=== PATIENT | female | born 1945 | race Caucasian/White ===

== ENCOUNTER 2017-12-01 20:07 | Emergency (ER) | payer MEDICARE ==
[~2017-12-01] VITALS: Ht 165.1 cm; Wt 63.5 kg
--- OUTSIDE RECORDS SUMMARY | 2017-12-01 20:09 | XMS REPORT | Clinical Summary ---
Author Author [facility] Organization [facility] Address Unknown Phone Unavailable Care Team Providers Care Public Relations Supervisor Name Role Phone Porsche Saldana MD PCP Allergies Active Allergy Reactions Severity Noted Date Comments Codeine 09/14/2011 Current Medications Prescription Sig. Disp. Refills Start End Date Status Date estradiol (ESTRACE) 0.5 Take 0.5 mg by mouth 0 10/14/19 Active MG tablet daily. TK 1 T PO QD 16 omega-3 fatty acids 1,000 Take 1,000 mg by mouth. Active mg capsule MULTIVIT-MIN/IRON/FOLIC/L Take 1 tablet by mouth Active UTEIN (CENTRUM SILVER daily. WOMEN ORAL) losartan-hydrochlorothiaz Take 1 tablet by mouth 90 tablet 3 02/09/20 Active lencho (HYZAAR) 100-12.5 mg every day 17 per tablet liothyronine (CYTOMEL) 5 Take 1 tablet by mouth 90 tablet 3 02/09/20 Active MCG tablet every day 17 calcitriol (ROCALTROL) Take 1 capsule by mouth 90 capsule 3 02/09/20 Active 0.25 MCG capsule every day 17 levothyroxine (SYNTHROID, Take 1 tablet (75 mcg 90 tablet 3 07/10/20 07/10/20 Active LEVOXYL) 75 mcg tablet total) by mouth every 17 18 morning. ciprofloxacin (CIPRO) 500 Take 1 tablet (500 mg 20 tablet 0 11/22/19 12/02/19 Active MG tablet total) by mouth 2 (two) 18 18 times a day for 10 days. metroNIDAZOLE (FLAGYL) Take 1 tablet (500 mg 30 tablet 0 11/22/19 Active 500 MG tablet total) by mouth 3 (three) 18 18 times a day for 10 days. zjrdzaxu-xvkhaoz-ngvf-lut Take 1 tablet(s) every 09/12/19 07/07/20 Discontin ein tablet day by oral route. 11 17 ued omega-3 acid ethyl esters Take 1,000 mg by mouth. 12/31/19 Discontin (LOVAZA) 1 gram capsule 17 ued levothyroxine (SYNTHROID, Take 1 tablet (75 mcg 90 tablet 3 07/25/20 01/03/20 Discontin LEVOTHROID) 75 MCG tablet total) by mouth every 16 17 ued morning. calcitriol (ROCALTROL) Take 1 capsule by mouth 90 capsule 1 11/05/19 02/08/20 Discontin 0.25 MCG capsule every day 17 17 ued losartan-hydrochlorothiaz Take 1 tablet by mouth 90 tablet 1 11/05/19 02/08/20 Discontin lencho (HYZAAR) 100-12.5 mg every day 17 17 ued per tablet liothyronine (CYTOMEL) 5 Take 1 tablet by mouth 90 tablet 1 11/05/19 02/08/20 Discontin MCG tablet every day 17 17 ued levothyroxine (SYNTHROID, Take 1 tablet (50 mcg 90 tablet 3 01/03/20 07/10/20 Discontin LEVOXYL) 50 mcg tablet total) by mouth every 17 17 ued morning. escitalopram (LEXAPRO) 10 Take 1 tablet (10 mg 30 tablet 2 07/07/20 10/05/19 MG tablet total) by mouth daily for 17 18 90 days. ciprofloxacin (CIPRO) 500 Take 1 tablet (500 mg 20 tablet 0 11/22/19 11/22/19 Discontin MG tablet total) by mouth 2 (two) 18 18 ued times a day for 10 days. metroNIDAZOLE (FLAGYL) Take 1 tablet (500 mg 30 tablet 0 11/22/19 Discontin 500 MG tablet total) by mouth 3 (three) 18 18 ued times a day for 10 days. Active Problems Problem Noted Date Diverticulitis of sigmoid colon 12/16/2015 Mixed hyperlipidemia 05/12/2011 Essential hypertension 04/16/2011 Hypothyroidism 04/16/2011 Varicose vein 04/16/2011 Resolved Problems Problem Noted Date Resolved Date Vaginal atrophy 11/06/2015 12/30/2016 Menopausal symptom 10/20/2012 12/30/2016 Pruritus of vulva 10/20/2012 12/30/2016 Encounters Date Type Specialty Care Team Description 11/30/2017 Telephone Internal Medicine Coral Sierra MA 11/21/2017 Orders Only Internal Medicine Rere Fried MD 11/21/2017 Orders Only Internal Medicine Rere Fried MD 07/10/2017 Orders Only Internal Medicine Cortez Saldana MD 07/07/2017 Office Visit Internal Cortez Harrington MD Postoperative hypothyroidism (Primary Dx); Essential hypertension; Reactive depression 05/31/2017 Office Visit Internal Cortez Harrington MD Influenza vaccine needed (Primary Dx) 02/07/2017 Refill Internal Cortez Harrington MD 01/02/2017 Orders Only Internal Cortez Harrington MD 12/30/2016 Office Visit Internal Medicine Cortez Saldana MD Routine general medical examination at a health care facility (Primary Dx); Essential hypertension; Mixed hyperlipidemia; Postoperative hypothyroidism after 11/30/2016 Immunizations Name Dates Previously Given Next Due FLUZONE HIGH-DOSE PF 05/31/2017, 05/05/2016, 05/05/2015 Influenza (IM) 06/11/2014 Preservative Free Influenza Split 05/10/2012, 06/22/2011, 09/12/2008 Influenza Trivalent 07/11/2009 Pneumococcal Conjugate 10/30/2014 13-Valent Pneumococcal 05/12/2011, 09/12/2005 Polysaccharide Zoster 09/12/2011 Family History Medical History Relation Name Comments Diabetes Brother Diabetes Father Hypertension Father Emphysema Maternal Grandfather Bone cancer Maternal Grandmother Cancer Mother Hodgkin's lymphoma Mother Cancer Paternal Grandfather Prostate cancer Paternal Grandfather Cancer Paternal Grandmother Uterine cancer Paternal Grandmother Relation Name Status Comments Brother Alive Father Maternal Grandfather Maternal Grandmother Mother Paternal Grandfather Paternal Grandmother Social History Tobacco Use Types Packs/Day Years Used Date Former Smoker Cigarettes 3 2 Quit: 1972 Smokeless Tobacco: Never Used Alcohol Use Drinks/Week oz/Week Comments Yes 10 Glasses of 6.0 wine Sex Assigned at Date Recorded Not on file Last Filed Vital Signs Vital Sign Reading Time Taken Blood Pressure 131/77 07/07/2017 11:02 AM CDT Pulse 76 07/07/2017 11:02 AM CDT Temperature - - Respiratory Rate - - Oxygen Saturation - - Inhaled Oxygen - - Concentration Weight 71 kg (156 lb 9.6 oz) 07/07/2017 11:02 AM CDT Height 165.1 cm (5' 5") 07/07/2017 11:02 AM CDT Body Mass Index 26.06 07/07/2017 11:02 AM CDT Plan of Treatment Health Maintenance Due Date Last Done Comments COLONOSCOPY 10/02/2017 10/02/2014 MAMMOGRAM 11/10/2018 11/10/2017, 10/15/2016, 10/13/2015 PNEUMOCOCCAL Completed 05/12/2011, 09/12/2005 POLYSACCHARIDE VACCINE AGE 65 AND OVER ZOSTER VACCINE Completed 09/12/2011 PNEUMOCOCCAL-13 Completed 10/30/2014, 10/30/2014 INFLUENZA VACCINE Completed 05/31/2017, 05/05/2016, 05/07/2015, Additional history exists Results * CBC with platelet and differential (07/07/2017 11:47 AM) Only the most recent of 2 results within the time period is included. Component Value Ref Range Platelet estimate ADEQUATE ADEQUATE CBC morphology Comment: NORMAL Red cell morphology appears unremarkable WBC 7.5 3.8 - 10.8 Thousand/uL RBC 4.25 3.80 - 5.10 Million/uL HGB 13.3 11.7 - 15.5 g/dL HCT 39.2 35.0 - 45.0 % MCV 92.2 80.0 - 100.0 fL MCH 31.3 27.0 - 33.0 pg MCHC 33.9 32.0 - 36.0 g/dL RDW 12.0 11.0 - 15.0 % Neutrophils, absolute 5,040 1,500 - 7,800 cells/uL Lymphocytes, absolute 1,845 850 - 3,900 cells/uL Monocytes, absolute 443 200 - 950 cells/uL Eosinophils, absolute 120 15 - 500 cells/uL Basophils, absolute 53 0 - 200 cells/uL Neutrophils 67.2 % Lymphocytes 24.6 % Monocytes 5.9 % Eosinophils 1.6 % Basophils + RC 0.7 % Nucleated RBC Comment: The smear was manually reviewed and the instrument differential results have been confirmed. The instrument differential has been reported. Platelet count TNP Thousand/uL Comment: TEST(S) NOT PERFORMED: PLATELET COUNT * Unable to report due to * * significant platelet clumping.* * Platelet estimate appears * * normal. * Specimen Performing Laboratory [facility] Narrative FASTING:YES * T3 (07/07/2017 11:47 AM) Only the most recent of 2 results within the time period is included. Component Value Ref Range T3 95 76 - 181 ng/dL Specimen Performing Laboratory [facility] Narrative FASTING:YES * Thyroid stimulating hormone (07/07/2017 11:47 AM) Only the most recent of 2 results within the time period is included. Component Value Ref Range TSH 10.06 (H) 0.40 - 4.50 mIU/L Specimen Performing Laboratory [facility] Narrative FASTING:YES * T4, free (07/07/2017 11:47 AM) Only the most recent of 2 results within the time period is included. Component Value Ref Range T4, free 1.0 0.8 - 1.8 ng/dL Specimen Performing Laboratory [facility] Narrative FASTING:YES * Comprehensive metabolic panel (07/07/2017 11:47 AM) Only the most recent of 2 results within the time period is included. Component Value Ref Range Glucose 105 (H) 65 - 99 mg/dL Comment: Fasting reference interval For someone without known diabetes, a glucose value between 100 and 125 mg/dL is consistent with prediabetes and should be confirmed with a follow-up test. BUN, whole blood 15 7 - 25 mg/dL Creatinine 0.83 0.60 - 0.93 mg/dL Comment: For patients >49 years of age, the reference limit for Creatinine is approximately 13% higher for people identified as -Bangladeshi. EGFR Non-Afr. Bangladeshi 71 > OR=60 mL/min/1.73m2 EGFR 82 > OR=60 mL/min/1.73m2 BUN/creatinine ratio NOT APPLICABLE 6 - 22 (calc) Sodium 143 135 - 146 mmol/L Potassium 4.1 3.5 - 5.3 mmol/L Chloride 100 98 - 110 mmol/L CO2 31 20 - 31 mmol/L Calcium 9.2 8.6 - 10.4 mg/dL Protein 6.9 6.1 - 8.1 g/dL Albumin, S 4.4 3.6 - 5.1 g/dL Globulin, total 2.5 1.9 - 3.7 g/dL (calc) Albumin/globulin ratio 1.8 1.0 - 2.5 (calc) Total bilirubin 0.7 0.2 - 1.2 mg/dL Alkaline phosphatase 47 33 - 130 U/L AST 25 10 - 35 U/L ALT 20 6 - 29 U/L Specimen Performing Laboratory [facility] Narrative FASTING:YES * URINALYSIS, COMPLETE, WITH REFLEX TO CULTURE (12/30/2016 12:19 PM) Component Value Ref Range Color, UA YELLOW YELLOW Appearance CLEAR CLEAR Specific gravity, urine 1.009 1.001 - 1.035 pH, urine 7.0 5.0 - 8.0 Glucose, urine NEGATIVE NEGATIVE Bilirubin, UA NEGATIVE NEGATIVE Ketones, UA NEGATIVE NEGATIVE Occult blood, urine NEGATIVE NEGATIVE Protein, UA NEGATIVE NEGATIVE Nitrite, UA NEGATIVE NEGATIVE Leukocyte esterase, UA NEGATIVE NEGATIVE WBC, UA NONE SEEN < OR=5 /HPF RBC, UA NONE SEEN < OR=2 /HPF Squamous epithelial NONE SEEN < OR=5 /HPF cells, UA Bacteria, UA NONE SEEN NONE SEEN /HPF Hyaline casts, UA NONE SEEN NONE SEEN /LPF Reflex NO CULTURE INDICATED Specimen Performing Laboratory [facility] Narrative FASTING:YES * Lipid panel (12/30/2016 12:19 PM) Component Value Ref Range Cholesterol, total 249 (H) 125 - 200 mg/dL HDL cholesterol 95 > OR=46 mg/dL Triglycerides 170 (H) <150 mg/dL LDL cholesterol 120 <130 mg/dL (calc) calculated Comment: Desirable range <100 mg/dL for patients with CHD or diabetes and <70 mg/dL for diabetic patients with known heart disease. Cholesterol/HDL ratio 2.6 < OR=5.0 (calc) Non-HDL cholesterol 154 mg/dL (calc) Comment: Target for non-HDL cholesterol is 30 mg/dL higher than LDL cholesterol target. Specimen Performing Laboratory [facility] Narrative FASTING:YES * ECG 12 lead (12/30/2016 10:43 AM) Component Value Ref Range Ventricular rate 74 Atrial rate 74 TN interval 216 QRSD interval 88 QT interval 406 QTC interval 450 P axis 1 59 QRS axis 1 57 T wave axis 45 EKG impression Sinus rhythm with 1st degree AV block-Otherwise normal ECG-In automated comparison with ECG of 31-DEC-2015 10:03,-No significant change was found- Specimen Performing Laboratory [facility] [address] [place] [address] after 11/30/2016 Insurance Payer Benefit Subscriber ID Type Phone Address Plan / Group MEDICARE MEDICARE xxxxxxxxxx Medicare [place], [place] PART A AND B AARP AARP xxxxxxxxxxx [place] [address]
[2017-12-01] MEDS ORDERED: PANTOPRAZOLE 40 MG 10ML VIAL IV STA (21:07)
[2017-12-01] MEDS ORDERED: ONDANSETRON HCL INJ 2 MG/ML VIAL IV STA (21:07)
[2017-12-01] MEDS ORDERED: SODIUM CHLORIDE 0.9% 500ML 500 ML IV ONE (21:15)
[2017-12-01] MEDS ORDERED: DIATRIZOATE MEGL/DIATRIZOA SOD 30 ML BTL PO ONE (21:32)
[2017-12-01 22:24] LABS: BASOPHILS # (AUTO) 0.1 (0.0-0.1); BASOPHILS % 0.3 % (0.0-1.0); EOSINOPHILS % 0.1 % (0.0-6.0); HEMATOCRIT 44.8 % (34.2-44.1); HEMOGLOBIN 15.5 g/dL (12.0-16.0); LYMPHOCYTES # (AUTO) 1.3 (1.0-3.2); LYMPHOCYTES % 8.5 % (18.0-39.1); MEAN CORPUSCULAR HEMOGLOBIN 30.3 pg (28-32); MEAN CORPUSCULAR HGB CONC 34.6 g/dL (31-35); MEAN CORPUSCULAR VOLUME 87.7 fL (81-99); MONOCYTES # (AUTO) 0.8 (0.2-0.8); NEUTROPHILS # (AUTO) 13.3 (2.1-6.9); NEUTROPHILS % 85.7 % (38.7-80.0); PLATELET COUNT 55 x10e3/uL (140-360); RED BLOOD COUNT 5.11 x10e6/uL (3.6-5.1); RED CELL DISTRIBUTION WIDTH 12.3 % (11.7-14.4)
[2017-12-01 22:30] LABS: BILIRUBIN,URINE 1+ (NEGATIVE); KETONES,URINE 1+ (NEGATIVE); LEUKOCYTE ESTERASE ,URINE TRACE (NEGATIVE); NITRITE,URINE NEGATIVE (NEGATIVE); URINE UROBILINOGEN 0.2 mg/dL (0.2 - 1)
[2017-12-01 22:31] LABS: INR 1.07; PROTHROMBIN TIME 13.1 seconds (11.9-14.5)
[2017-12-01 22:31] LABS: CLARITY,URINE SL CLOUDY (CLEAR); COLOR,URINE STRAW (YELLOW); PROTEIN,URINE DIPSTICK TRACE (NEGATIVE)
[2017-12-01 22:32] LABS: PARTIAL THROMBOPLASTIN TIME 27.8 seconds (23.8-35.5)
[2017-12-01 22:43] LABS: BACTERIA,URINE MODERATE /HPF; EPITHELIAL CELLS,URINE MODERATE /LPF
[2017-12-01 22:44] LABS: ALANINE AMINOTRANSFERASE 10 IU/L (0-55); ALBUMIN 3.6 g/dL (3.5-5.0); ALBUMIN/GLOBULIN RATIO 0.9 (0.8-2.0); ALKALINE PHOSPHATASE 48 IU/L (40-150); AMYLASE 41 U/L (25-125); ANION GAP 16.7 mmol/L (8-16); BLOOD UREA NITROGEN 14 mg/dL (7-26); BUN/CREATININE RATIO 17 (6-25); CALCIUM 8.4 mg/dL (8.4-10.2); CARBON DIOXIDE 26 mmol/L (22-29); CHLORIDE 96 mmol/L (98-107); CREATINE KINASE 43 IU/L (29-168); CREATININE, SERUM 0.81 mg/dL (0.57-1.11); EST GLOMERULAR FILTRATION RATE > 60 ML/MIN (60-); GLUCOSE 123 mg/dL (74-118); LIPASE 16 U/L (8-78); MAGNESIUM 1.8 MG/DL (1.3-2.1); SODIUM 136 mmol/L (136-145)
[2017-12-01 22:48] LABS: POTASSIUM 2.7 mmol/L (3.5-5.1)
[2017-12-01] MEDS ORDERED: SODIUM CHLORIDE 0.9% 50ML 50 ML ONE (23:08)
[2017-12-01] MEDS ORDERED: IOPAMIDOL 370 MG/ML 200 ML INFUS..BTL INJ ONE (23:08)
[2017-12-01] MEDS ORDERED: POTASSIUM CHLORIDE 20MEQ/15ML UDC PO STA (23:28)
[2017-12-01] MEDS ORDERED: KCL 20MEQ/.9 SOD CHL 1,000 ML IV ONE (23:30)
--- NOTE | 2017-12-01 23:48 | Diagnostic Imaging Report ---
EXAM: CT ABDOMEN AND PELVIS with IV CONTRAST DATE: 12/01/2017 9:07 PM Time stamp on Exam: 2310 hours INDICATION: Right-sided abdominal pain COMPARISON: None TECHNIQUE: The abdomen and pelvis were scanned using a multidetector helical scanner. Coronal and sagittal reformations were obtained. Routine protocol performed. IV Contrast: 100 cc Isovue-370 Oral Contrast: Gastrografin CTDIvol has been reviewed. It is below the limits set by the Radiation Protocol Committee (RPC). FINDINGS: LOWER THORAX: No consolidations LIVER: No masses BILIARY: The gallbladder is unremarkable. No ductal dilation. SPLEEN: No masses PANCREAS: Pancreatic atrophy. No masses. ADRENALS: No nodules KIDNEYS: Symmetric perfusion. No enhancing masses. No hydronephrosis. GI TRACT: There is an approximately 6 cm segment of sigmoid colon with marked irregular wall thickening and narrowing resulting in more proximal colonic obstruction. The cecum is dilated to 8 cm. The small bowel loops are not dilated. VESSELS: Unremarkable PERITONEUM/RETROPERITONEUM: Small amount of free fluid in the pelvis. LYMPH NODES: No lymphadenopathy REPRODUCTIVE ORGANS: The uterus and ovaries are not visualized. BLADDER: Unremarkable SOFT TISSUES: Unremarkable BONES: Suspicious 1cm lytic lesion with adjacent smaller lesions in the T11 vertebral body. IMPRESSION: Large bowel obstruction secondary to narrowed lumen at the junction of the sigmoid colon and descending colon likely secondary to a colonic mass. Suspicious lytic lesions in the T11 vertebral body for metastatic disease. The study was discussed with Dr. Jay December 01, 2017 at 2341 hours. Signed by: Dr. Marlene Ruelas M.D. on 12/01/2017 11:44 PM
--- NOTE | 2017-12-01 23:53 | Diagnostic Imaging Report ---
EXAM: CHEST SINGLE (PORTABLE), AP 1 view INDICATION: Abdominal pain COMPARISON: None FINDINGS: LINES/TUBES: None LUNGS: No consolidations or edema. PLEURA: No effusions or pneumothorax. HEART AND MEDIASTINUM: Normal size and contour. BONES AND SOFT TISSUES: No acute findings. IMPRESSION: No acute thoracic abnormality. Signed by: Dr. Marlene Ruelas M.D. on 12/01/2017 11:49 PM
[2017-12-02] MEDS ORDERED: LEVOTHYROXINE75 MCG PO (00:48)
[2017-12-02] MEDS ORDERED: ESTRADIOL1 MG PO (00:48)
[2017-12-02] MEDS ORDERED: LIOTHYRONINE SO5 MCG PO (00:48)
[2017-12-02] MEDS ORDERED: LOSARTAN POTAS100 MG PO (00:48)
[2017-12-02] MEDS ORDERED: OMEPRAZOLE40 MG PO (00:48)
[2017-12-02] MEDS ORDERED: HYDROCHLOROTHIA25 MG PO (00:48)
[2017-12-02] MEDS ORDERED: CALCITRIOL0.25 MCG PO (00:48)
== END 2017-12-02 02:49 | disposition short-term general hospital (02) ==
LOC: ER 20:07
DX: R10.31 Right lower quadrant pain (principal); K56.609 Unspecified intestinal obstruction, unspecified as to partial versus complete obstruction; E87.6 Hypokalemia
CPT/HCPCS: 36415; 71045; 74177; 80053; 81001; 82150; 82550; 82553; 83690; 83735; 84484; 85025; 85610; 85730; 87086; 93005; 96360; 96374; 96375; 99284; J2405; J7040; Q9967